=== PATIENT | female | born 1990 | race Caucasian/White ===

== ENCOUNTER 2023-04-06 14:48 | Outpatient (OUT) | payer OTHER, SELFPAY ==
--- NOTE | 2023-04-06 14:53 | US_ITS ---
[address] [address] Patient Name: ANIA NICHOLS MRN: [id number] date: 1990 Sex: F Assigned Patient Location: Current Patient Location: Accession/Order Number: [id number] Exam Date: 04/06/2023 15:00 Report Date: 04/06/2023 15:47 At the request of: RAJANI OSORIO Procedure: US OB growth EXAMINATION: US OB growth HISTORY: SIZE OF FETUS INCONSISTENT WITH DATES COMPARISON: No relevant comparison available. FINDINGS: Heart Rate: 141.0 bpm Number: 1.0 Position: CEPHALIC Amniotic Fluid Volume: 13.9 cm Maximum Vertical Pocket: 5.4 cm BIOMETRY: BPD: 7.9 cm cm; 31 weeks 4 days; 51% HC: 28.9 cmcm; 31 weeks 6 days; 31% AC: 27.5 cm cm; 31 weeks 4 days; 61% FL: 6.1 cm cm; 31 weeks 6 days; 55% EFW: 1816.2 grams; 56% FL/AC: 22.3 FL/BPD: 78.1 HC/AC: 1.1 GESTATIONAL AGE: Age by EDC: 31 weeks 1 days RHONA by EDC: 06/07/2023 Age by US: 31 weeks 5 days RHONA by US: 06/03/2023 IMPRESSION: 1. Single live intrauterine with growth detailed above. Electronically authenticated by: NATHAN FRANKEL Date: 04/06/2023 15:47
== END 2023-04-06 14:49 ==
PROVIDERS: PCP Family Medicine; Visit Provider Obstetrics & Gynecology
DX: O26.849 Uterine size-date discrepancy, unspecified trimester (principal)
CPT/HCPCS: 76816

== ENCOUNTER 2023-05-04 14:05 | Outpatient (OUT) | payer OTHER, SELFPAY ==
--- NOTE | 2023-05-04 14:13 | US_ITS ---
[address] [address] Patient Name: ANIA INCHOLS MRN: [id number] date: 1990 Sex: F Assigned Patient Location: US Current Patient Location: US Accession/Order Number: [id number] Exam Date: 05/04/2023 14:08 Report Date: 05/04/2023 16:08 At the request of: RAJANI OSORIO Procedure: US OB growth EXAMINATION: US OB incomplete anatomy, US OB growth HISTORY: INCOMPLETE ANATOMY ; gestational diabetes COMPARISON: Ultrasound anatomy 01/25/2023, ultrasound OB growth 04/06/2023 FINDINGS: Heart Rate: 165.0 bpm Number: 1.0 Position: CEPHALIC Amniotic Fluid Volume: 13.3 cm Maximum Vertical Pocket: 3.9 cm ANATOMY: Evaluation of the cardiac outflow tracts and three-vessel cord; no appreciable abnormality. BIOMETRY: BPD: 8.5 cm cm; 34 weeks 1 days; 26% HC: 31.7 cmcm; 35 weeks 5 days; 29% AC: 31.6 cm cm; 35 weeks 4 days; 68% FL: 6.8 cm cm; 34 weeks 6 days; 36% EFW: 2622.4 grams FL/AC: 21.5 FL/BPD: 80.0 HC/AC: 1.0 GESTATIONAL AGE: Age by EDC: 35 weeks 1 days RHONA by EDC: 06/07/2023 Age by US: 35 weeks 1 day RHONA by US: 06/07/2023 US/US OB growth IMPRESSION: 1. Single live intrauterine with growth detailed above. 2. No appreciable abnormality of the left and right cardiac outflow tracts and three-vessel cord. Electronically authenticated by: NATHAN FRANKEL Date: 05/04/2023 16:08
--- NOTE | 2023-05-04 14:13 | US_ITS ---
[address] [address] Patient Name: ANIA NICHOLS MRN: [id number] date: 1990 Sex: F Assigned Patient Location: US Current Patient Location: US Accession/Order Number: [id number] Exam Date: 05/04/2023 14:13 Report Date: 05/04/2023 16:08 At the request of: RAJANI OSORIO Procedure: US OB incomplete anatomy EXAMINATION: US OB incomplete anatomy, US OB growth HISTORY: INCOMPLETE ANATOMY ; gestational diabetes COMPARISON: Ultrasound anatomy 01/25/2023, ultrasound OB growth 04/06/2023 FINDINGS: Heart Rate: 165.0 bpm Number: 1.0 Position: CEPHALIC Amniotic Fluid Volume: 13.3 cm Maximum Vertical Pocket: 3.9 cm ANATOMY: Evaluation of the cardiac outflow tracts and three-vessel cord; no appreciable abnormality. BIOMETRY: BPD: 8.5 cm cm; 34 weeks 1 days; 26% HC: 31.7 cmcm; 35 weeks 5 days; 29% AC: 31.6 cm cm; 35 weeks 4 days; 68% FL: 6.8 cm cm; 34 weeks 6 days; 36% EFW: 2622.4 grams FL/AC: 21.5 FL/BPD: 80.0 HC/AC: 1.0 GESTATIONAL AGE: Age by EDC: 35 weeks 1 days RHONA by EDC: 06/07/2023 Age by US: 35 weeks 1 day RHONA by US: 06/07/2023 US/US OB incomplete anatomy IMPRESSION: 1. Single live intrauterine with growth detailed above. 2. No appreciable abnormality of the left and right cardiac outflow tracts and three-vessel cord. Electronically authenticated by: NATHAN FRANKEL Date: 05/04/2023 16:08
== END 2023-05-04 14:06 | disposition home or self-care (01) ==
LOC: US 14:05
PROVIDERS: PCP Family Medicine; Visit Provider Obstetrics & Gynecology
DX: Z36.2 Encounter for other antenatal screening follow-up (principal); Z86.32 Personal history of gestational diabetes
CPT/HCPCS: 76815; 76816

== ENCOUNTER 2023-05-10 16:16 | Outpatient (OUT) | payer OTHER, SELFPAY ==
--- NOTE | 2023-05-10 16:17 | US_ITS ---
[address] [address] Patient Name: ANIA NICHOLS MRN: [id number] date: 1990 Sex: F Assigned Patient Location: US Current Patient Location: Accession/Order Number: [id number] Exam Date: 05/10/2023 16:25 Report Date: 05/10/2023 18:27 At the request of: RAJANI OSORIO Procedure: US OB BPP w non-stress EXAMINATION: US OB BPP w non-stress HISTORY: THIRD TRIMESTER Z34.93 COMPARISON: No relevant comparison available. TECHNIQUE: Ultrasound biophysical profile was performed in the radiology department. FINDINGS: BREATHING MOVEMENTS: 2.0 GROSS BODY MOVEMENTS: 2.0 TONE: 2.0 QUALITATIVE AMNIOTIC FLUID VOLUME: 2.0 PRESENTATION: CEPHALIC HEART RATE: 141.4 bpm H.B./min AMNIOTIC FLUID VOLUME: 10.8 cm cm GESTATIONAL AGE: 36 weeks 0 days CONCLUSION: Total biophysical profile score: 8.0 Electronically authenticated by: SAUL HOBBS Date: 05/10/2023 18:27
== END 2023-05-10 17:23 | disposition home or self-care (01) ==
LOC: US 16:16 → FBC 16:55
PROVIDERS: PCP Family Medicine; Visit Provider Obstetrics & Gynecology
DX: Z34.93 Encounter for supervision of normal pregnancy, unspecified, third trimester (principal)
CPT/HCPCS: 76818; 87081; 87150; 87186

== ENCOUNTER 2023-05-10 20:37 | Outpatient (REF) | payer OTHER, SELFPAY | END 2023-05-10 20:38 | disposition home or self-care (01) | LOC: LAB 20:37 | PROVIDERS: PCP Family Medicine; Visit Provider Obstetrics & Gynecology | DX: Z34.93 Encounter for supervision of normal pregnancy, unspecified, third trimester (principal) | CPT/HCPCS: 87081; 87150; 87186 ==

== ENCOUNTER 2023-05-13 16:14 | Outpatient (OUT) | payer OTHER, SELFPAY ==
[2023-05-13 16:21] VITALS: BP 158/88; PULSE 86
[2023-05-13 16:30] VITALS: BP 140/84; PULSE 81
== END 2023-05-13 16:59 | disposition home or self-care (01) ==
LOC: FBCO 16:14 → FBC 16:15
PROVIDERS: PCP Family Medicine; Visit Provider Obstetrics & Gynecology
DX: Z36.2 Encounter for other antenatal screening follow-up (principal); Z86.32 Personal history of gestational diabetes
CPT/HCPCS: 59025

== ENCOUNTER 2023-05-17 16:06 | Outpatient (OUT) | payer OTHER, SELFPAY ==
--- NOTE | 2023-05-17 16:13 | US_ITS ---
[address] [address] Patient Name: ANIA NICHOLS MRN: [id number] date: 1990 Sex: F Assigned Patient Location: [facility] Current Patient Location: Accession/Order Number: [id number] Exam Date: 05/17/2023 16:20 Report Date: 05/18/2023 04:09 At the request of: RAJANI OSORIO Procedure: US OB BPP w non-stress EXAMINATION: US OB BPP w non-stress HISTORY: THIRD TRIMESTER Z34.93 COMPARISON: Ultrasound biophysical 05/10/2023 TECHNIQUE: Ultrasound biophysical profile was performed in the radiology department. BREATHING MOVEMENTS: 2.0 GROSS BODY MOVEMENTS: 2.0 TONE: 2.0 QUALITATIVE AMNIOTIC FLUID VOLUME: 2.0 PRESENTATION: CEPHALIC HEART RATE: 133.0 bpm bpm. AMNIOTIC FLUID VOLUME: 12.6 cm GESTATIONAL AGE: 37 weeks 0 days CONCLUSION: Total biophysical profile score 8.0. Electronically authenticated by: NATHAN FRANKEL Date: 05/18/2023 04:09
[2023-05-17 16:57] VITALS: BP 143/84; PULSE 75
== END 2023-05-17 17:50 | disposition home or self-care (01) ==
LOC: US 16:07 → FBC 16:14
PROVIDERS: PCP Family Medicine; Visit Provider Midwife
DX: Z36.2 Encounter for other antenatal screening follow-up (principal); Z86.32 Personal history of gestational diabetes
CPT/HCPCS: 76818

== ENCOUNTER 2023-05-20 16:50 | Observation (INO) | payer OTHER, SELFPAY ==
[2023-05-20 16:31] VITALS: BP 162/98; PULSE 86
--- NOTE | 2023-05-20 17:02 | US_ITS ---
[address] [address] Patient Name: ANIA NICHOLS MRN: [id number] date: 1990 Sex: F Assigned Patient Location: [facility] Current Patient Location: [facility] Accession/Order Number: [id number] Exam Date: 05/20/2023 17:03 Report Date: 05/20/2023 18:13 At the request of: ADITI SANDERS Procedure: US OB BPP w non-stress EXAM: US OB BPP w non-stress HISTORY: increased BP COMPARISON: 05/17/2023 TECHNIQUE: Transabdominal pelvic ultrasound was performed. FINDINGS: There is a single live intrauterine gestation. MARIAN is 11.5 cm and is within normal limits. breathing movements: 2 / 2 Gross body movements: 2 / 2 tone: 2 / 2 Qualitative amniotic fluid volume: 2 / 2 Total biophysical profile score: 8 / 8 US/US OB BPP w non-stress IMPRESSION: 1. Unremarkable biophysical profile. The biophysical profile score is 8/8. 2. There is a single live intrauterine gestation. Electronically authenticated by: PRICE VIDALES Date: 05/20/2023 18:13
[2023-05-20 17:28] LABS: Basophils Percent Auto 0.2 % (0.2-2.0); Eosinophils Absolute Auto 0.1 10^3/uL (0.0-0.7); Eosinophils Percent Auto 1.3 % (0.9-7.0); Hematocrit 33.5 % (36.0-48.0); Hemoglobin 11.4 g/dL (12.0-16.0); Immature Granulocytes Abs Auto 0.06 10^3/uL (0.00-0.03); Immature Granulocytes Pct Auto 0.6 % (0.0-0.5); Lymphocytes Absolute Auto 1.7 10^3/uL (1.2-3.8); Lymphocytes Percent Auto 17.7 % (20.5-60.0); Mean Corpuscular Hemoglobin 29.3 pg (26.7-34.0); Mean Corpuscular Volume 86.1 fL (81.0-99.0); Mean Platelet Volume 10.2 fL (9.5-13.5); Monocytes Absolute Auto 0.5 10^3/uL (0.3-0.8); Monocytes Percent Auto 5.3 % (1.7-12.0); Neutrophils Percent Auto 74.9 % (43.0-75.0); Platelet Count 283 10^3/uL (150-450); Red Blood Count 3.89 10^6/uL (4.20-5.40); Red Cell Distribution Width 14.3 % (11.0-15.0); White Blood Count 9.3 10^3/uL (4.0-11.0)
--- NOTE | 2023-05-20 17:34 | PM.OBHP ---
OB - H&P: HPI History of Present Illness Chief complaint: FBC NST ROOM : 2 Para: 1 Gestational age based on last menstrual period: 37 PLUS WEEKS History of Present Dating criteria: LMP confirmed by 2nd trimester US care: good care Ultrasounds: normal mid trimester US complications: other (ELEVATED BLOOD PRESSURE IN THIRD TRIMESTER, HISTORY OF TOXEMIA TEN YEARS AGO, ELEVATED ONE HOUR GTT THIS ) complications comment: ADMIT OBSERVATION TO EVALUATE FOR TOXEMIA VS PIH VS CHRONIC HYPERTENSION Medical complications OB: none Labs Blood type: other (DO NOT HAVE ACCESS TO EHR FROM OFFICE) Review of Systems ROS Status of ROS 10 or more systems reviewed and unremarkable except as noted in history and below Meds Home Medications and Allergies Home Medications Medication Instructions Recorded Confirmed Type sertraline 50 mg tablet mg 05/20/23 History Allergies Allergy/AdvReac Type Severity Reaction Status Date / Time Penicillins Allergy Intermediate Hives Verified 05/13/23 16:23 Exam Constitutional Vital Signs, click to edit/add: Last Vital Signs Pulse 86 05/20/23 16:31 BP 162/98 H 05/20/23 16:31 Documenting provider has reviewed patient's vital signs: yes Common normals: no apparent distress, oriented x3, healthy appearing, alert and well nourished General appearance: cooperative, comfortable and well kempt Orientation/consciousness: Yes oriented to person, Yes oriented to place and Yes oriented to time HENMT Common normals: normocephalic and head/scalp atraumatic Eye Common normals: PERRL Neck & C-Spine Common normals: full ROM Respiratory Common normals: normal respiratory effort Auscultation: clear to auscultation bilaterally Cardio Common normals: regular rate and regular rhythm GI Common normals: Normal to inspection, nondistended, normoactive bowel sounds present (GRAVID UTERUS) Back & Pelvis Common normals: no CVA tenderness Extremity Common normals: normal to inspection and full ROM Neuro Common normals: oriented x3 and CN's II-XII intact bilaterally Motor exam: strength 5/5 throughout Psych Common normals: mental status grossly normal and thought process normal Mood and affect: euthymic mood Thought process: normal thought process Results Labs Labs: Short CBC 05/20/23 Range/Units 17:20 WBC 9.3 (4.0-11.0) 10^3/uL Hgb 11.4 L (12.0-16.0) g/dL Hct 33.5 L (36.0-48.0) % Plt Count 283 (150-450) 10^3/uL OB - A/P Assessment and Plan (1) Hypertension affecting : Plan 32 YEAR OLD, ESSENTIAL PRIMIP LAST 10 YEARS AGO. PRESENTED FOR NST AND BLOOD PRESSURE ELEVATED. HAD HISTORY OF TOXEMIA WITH FIRST . NO HEADACHE, NO EPIGASTRIC PAIN, NO BLURRING, NO HYPERREFLEXIA. OUTPATIENT ADMISSION FOR EVALUATION AND MANAGEMENT OF ELEVATED BLOOD PRESSURE. SUSPECT THIS MAY BE CHRONIC HYPERTENSION RATHER THAN ECLAMPSIA. CMP AND CBC NORMAL. BPP 10/. AWAITING P:C RATION ON URINE SAMPLE. IF THAT IS NORMAL, WILL SEND HOME ON LABETALOL 100 MG PO BID WITH FOLLOW UP TUESDAY FOR BLOOD PRESSURE CHECK. WILL BE INSTRUCTED ON SIGNS AND SYMPTOMS OF TOXEMIA AND INDICATIONS TO CALL PHYSICIAN.
[2023-05-20 17:36] VITALS: BP 163/89; PULSE 84
[2023-05-20] MEDS: LABETALOL HCL 20 MG/4 ML SYRINGE 5 MG IVP (17:40)
[2023-05-20 17:41] LABS: Alanine Aminotransferase 16 U/L (14-59); Albumin Globulin Ratio 0.8; Albumin Level 2.8 g/dL (3.4-5.0); Alkaline Phosphatase 71 U/L (46-116); Anion Gap 17.1; Aspartate Amino Transferase 9 U/L (15-37); BUN Creatinine Ratio 8.2; Bilirubin Total 0.2 mg/dL (0.2-1.0); Calcium 8.3 mg/dL (8.5-10.1); Carbon Dioxide 19.4 mmol/L (21.0-32.0); Chloride 104 mmol/L (98-107); Estimated GFR (African America >60 (>=60); Estimated GFR (Non-African Ame >60 (>=60); Globulin 3.7 g/dL; Glucose 123 mg/dL (74-106); Lactate Dehydrogenase 121 U/L (81-234); Potassium 3.5 mmol/L (3.5-5.1); Sodium 137 mmol/L (136-145); Total Protein 6.5 g/dL (6.4-8.2); Uric Acid 4.7 mg/dL (2.6-6.0)
[2023-05-20 17:53] VITALS: BP 134/76; PULSE 80
[2023-05-20 18:13] LABS: Bilirubin Urine NEGATIVE (NEGATIVE); Blood Urine NEGATIVE (NEGATIVE); Clarity Urine CLEAR (CLEAR); Color Urine LT. YELLOW (YELLOW); Glucose Urine UA NEGATIVE (NEGATIVE); Ketones Urine NEGATIVE (NEGATIVE); Leukocyte Esterase Urine NEGATIVE (NEGATIVE); Nitrite Urine NEGATIVE (NEGATIVE); Protein Urine NEGATIVE (NEG/TRACE); Urobilinogen Urine 0.2 EU/dL (0.2-1.0)
[2023-05-20 18:14] LABS: Urine Microscopic Indicated NO
[2023-05-20 18:18] LABS: Creatinine Urine Random 28.84 mg/dL (20.00-300.00)
[2023-05-20 18:21] LABS: Protein Creatinine Ratio Urine 0.21; Total Protein Urine Random <6.0 mg/dL (<=11.9)
== END 2023-05-20 18:45 | disposition home or self-care (01) ==
LOC: FBCO 16:54 → FBC 16:54
PROVIDERS: Admitting Provider Obstetrics & Gynecology; PCP Family Medicine; Visit Provider Obstetrics & Gynecology
DX: O16.3 Unspecified maternal hypertension, third trimester (principal); Z3A.37 37 weeks gestation of pregnancy
CPT/HCPCS: 36415; 59025; 76818; 80053; 81003; 82570; 83615; 84156; 84550; 85025; 96374; G0378; G0379

== ENCOUNTER 2023-05-24 11:07 | Outpatient (OUT) | payer OTHER, SELFPAY ==
--- NOTE | 2023-05-24 11:09 | US_ITS ---
[address] [address] Patient Name: ANIA NICHOLS MRN: [id number] date: 1990 Sex: F Assigned Patient Location: US Current Patient Location: Accession/Order Number: [id number] Exam Date: 05/24/2023 11:10 Report Date: 05/24/2023 18:02 At the request of: RAJANI OSORIO Procedure: US OB growth EXAMINATION: US OB growth HISTORY: GDM COMPARISON: No relevant comparison available. FINDINGS: #: 1.0 Presentation: Cephalic presentation, longitudinal lie Heart Rate: 142.0 bpm Amniotic Fluid Volume: 18.2 cm cm Maximum Vertical Pocket: 6.0 cm cm 4.1 cm cm 3.9 cm cm 4.2 cm cm BIOMETRY: BPD: 9.0 cm cm; 36 weeks 3 days, 31% HC: 33.4 cm cm; 38 weeks 2 days, 35% AC: 34.5 cm cm; 38 weeks 3 days, 78% FL: 7.7 cm cm; 39 weeks 2 days, 81% EFW: 3459 g, 7 lbs. 10 oz., 71% FL/AC: 22.2 FL/BPD: 85.2 HC/AC: 1.0 GESTATIONAL AGE: RHONA by EDC: 38 weeks 0 days Age by EDC: 06/07/2023 Ultrasound Age: 38 weeks 1 day RHONA by US: 06/06/2023 US/US OB growth IMPRESSION: Normal interval growth Electronically authenticated by: SAUL HOBBS Date: 05/24/2023 18:02
--- NOTE | 2023-05-24 15:48 | US_ITS ---
[address] [address] Patient Name: ANIA NICHOLS MRN: [id number] date: 1990 Sex: F Assigned Patient Location: [facility] Current Patient Location: Accession/Order Number: [id number] Exam Date: 05/24/2023 16:15 Report Date: 05/25/2023 14:33 At the request of: RAJANI OSORIO Procedure: US OB BPP w non-stress EXAMINATION: US OB BPP w non-stress HISTORY: Third trimester Z34.93 COMPARISON: Ultrasound biophysical 05/12/2023 TECHNIQUE: Ultrasound biophysical profile was performed in the radiology department. BREATHING MOVEMENTS: 2.0 GROSS BODY MOVEMENTS: 2.0 TONE: 2.0 QUALITATIVE AMNIOTIC FLUID VOLUME: 2.0 PRESENTATION: CEPHALIC HEART RATE: 139.9 bpm bpm. AMNIOTIC FLUID VOLUME: 8.7 cm GESTATIONAL AGE: 38 weeks 0 days CONCLUSION: Total biophysical profile score 8.0. Electronically authenticated by: NATHAN FRANKEL Date: 05/25/2023 14:33
== END 2023-05-24 11:08 | disposition home or self-care (01) ==
LOC: US 11:07
PROVIDERS: PCP Family Medicine; Visit Provider Obstetrics & Gynecology
DX: Z36.2 Encounter for other antenatal screening follow-up (principal); Z86.32 Personal history of gestational diabetes; Z3A.38 38 weeks gestation of pregnancy
CPT/HCPCS: 76816; 76818

== ENCOUNTER 2023-05-24 15:41 | Observation (INO) | payer OTHER, SELFPAY ==
[2023-05-24 15:56] VITALS: BP 136/73; PULSE 80
== END 2023-05-24 16:45 | disposition home or self-care (01) ==
PROVIDERS: Admitting Provider Midwife; PCP Family Medicine; Visit Provider Midwife
DX: O24.419 Gestational diabetes mellitus in pregnancy, unspecified control (principal); Z36.2 Encounter for other antenatal screening follow-up; Z3A.38 38 weeks gestation of pregnancy
CPT/HCPCS: 59025; 76816; 76818; G0378; G0379

== ENCOUNTER 2023-05-27 16:00 | Outpatient (OUT) | payer OTHER, SELFPAY ==
[2023-05-27 16:08] VITALS: BP 143/87; PULSE 85
== END 2023-05-27 16:45 | disposition home or self-care (01) ==
LOC: FBCO 16:00 → FBC 16:01
PROVIDERS: PCP Family Medicine; Visit Provider Obstetrics & Gynecology
DX: Z34.93 Encounter for supervision of normal pregnancy, unspecified, third trimester (principal); Z36.2 Encounter for other antenatal screening follow-up; Z86.32 Personal history of gestational diabetes
CPT/HCPCS: 59025

== ENCOUNTER 2023-05-31 16:11 | Outpatient (OUT) | payer OTHER, SELFPAY ==
--- NOTE | 2023-05-31 16:12 | US_ITS ---
[address] [address] Patient Name: ANIA NICHOLS MRN: [facility]:[id number] date: 1990 Sex: F Assigned Patient Location: [facility] Current Patient Location: Accession/Order Number: [id number] Exam Date: 05/31/2023 16:20 Report Date: 05/31/2023 22:11 At the request of: RAJANI OSORIO Procedure: US OB BPP w non-stress EXAMINATION: US OB BPP w non-stress HISTORY: THIRD TRIMESTER Z34.93 COMPARISON: Ultrasound OB biophysical 05/24/2023 TECHNIQUE: Ultrasound biophysical profile was performed in the radiology department. BREATHING MOVEMENTS: 0.0 GROSS BODY MOVEMENTS: 2.0 TONE: 2.0 QUALITATIVE AMNIOTIC FLUID VOLUME: 2.0 PRESENTATION: CEPHALIC HEART RATE: 155.2 bpm bpm. AMNIOTIC FLUID VOLUME: 12.6 cm GESTATIONAL AGE: 39 weeks 0 days CONCLUSION: Total biophysical profile score 6.0. Electronically authenticated by: NATHAN FRANKEL Date: 05/31/2023 22:11
[2023-05-31 17:03] VITALS: BP 137/76; PULSE 78
== END 2023-05-31 17:25 | disposition home or self-care (01) ==
LOC: US 16:11 → FBC 16:50
PROVIDERS: PCP Family Medicine; Visit Provider Obstetrics & Gynecology
DX: Z34.93 Encounter for supervision of normal pregnancy, unspecified, third trimester (principal); Z36.2 Encounter for other antenatal screening follow-up; Z86.32 Personal history of gestational diabetes
CPT/HCPCS: 76818

== ENCOUNTER 2023-06-03 16:00 | Outpatient (OUT) | payer OTHER, SELFPAY ==
[2023-06-03 16:08] VITALS: BP 143/83; PULSE 93
== END 2023-06-03 16:30 | disposition home or self-care (01) ==
LOC: FBCO 16:01 → FBC 16:01
PROVIDERS: PCP Family Medicine; Visit Provider Obstetrics & Gynecology
DX: Z34.93 Encounter for supervision of normal pregnancy, unspecified, third trimester (principal)
CPT/HCPCS: 59025

== ENCOUNTER 2023-06-07 15:05 | Outpatient (OUT) | payer OTHER, SELFPAY ==
--- NOTE | 2023-06-07 15:08 | US_ITS ---
[address] [address] Patient Name: ANIA NICHOLS MRN: [facility]:[id number] date: 1990 Sex: F Assigned Patient Location: [facility] Current Patient Location: [facility] Accession/Order Number: [id number] Exam Date: 06/07/2023 15:09 Report Date: 06/07/2023 15:53 At the request of: ESTUARDO DACOSTA Procedure: US OB BPP w non-stress EXAMINATION: US OB BPP w non-stress HISTORY: Third trimester Z34.93 COMPARISON: Ultrasound biophysical 05/31/2023 TECHNIQUE: Ultrasound biophysical profile was performed in the radiology department. BREATHING MOVEMENTS: 2.0 GROSS BODY MOVEMENTS: 2.0 TONE: 2.0 QUALITATIVE AMNIOTIC FLUID VOLUME: 2.0 PRESENTATION: Cephalic HEART RATE: 139.9 bpm bpm. AMNIOTIC FLUID VOLUME: 18.9 cm GESTATIONAL AGE: 40 weeks 0 days CONCLUSION: Total biophysical profile score 8.0. Electronically authenticated by: NATHAN FRANKEL Date: 06/07/2023 15:53
[2023-06-07 15:32] VITALS: BP 146/75; PULSE 83
== END 2023-06-07 16:01 | disposition home or self-care (01) ==
LOC: US 15:07 → FBC 15:07
PROVIDERS: PCP Family Medicine; Visit Provider Midwife
DX: Z34.93 Encounter for supervision of normal pregnancy, unspecified, third trimester (principal); Z86.32 Personal history of gestational diabetes
CPT/HCPCS: 76818

== ENCOUNTER 2023-06-10 05:05 | Inpatient (IN) | payer OTHER, SELFPAY ==
[2023-06-10] VITALS (59 sets, daily range): BP systolic 63–166; BP diastolic 29–103; PULSE 54–120; RESP 16–18; TEMP 35.9–37
[2023-06-10 05:53] LABS: Hematocrit 33.3 % (36.0-48.0); Hemoglobin 11.1 g/dL (12.0-16.0); Mean Corpuscular HGB Conc 33.3 g/dL (29.9-35.2); Mean Corpuscular Hemoglobin 28.8 pg (26.7-34.0); Mean Corpuscular Volume 86.3 fL (81.0-99.0); Mean Platelet Volume 10.4 fL (9.5-13.5); Platelet Count 286 10^3/uL (150-450); Red Blood Count 3.86 10^6/uL (4.20-5.40); Red Cell Distribution Width 14.6 % (11.0-15.0); White Blood Count 10.6 10^3/uL (4.0-11.0)
[2023-06-10 06:01] LABS: Amphetamine Screen Urine NEGATIVE (NEGATIVE); Barbiturates Screen Urine NEGATIVE (NEGATIVE); Benzodiazepines Screen Urine NEGATIVE (NEGATIVE); Buprenorphine Screen Urine NEGATIVE (NEGATIVE); Cannabinoid Screen Urine NEGATIVE (NEGATIVE); Cocaine Screen Urine NEGATIVE (NEGATIVE); Methadone Screen Urine NEGATIVE (NEGATIVE); Methamphetamines Screen Urine NEGATIVE (NEGATIVE); Opiate Screen Urine NEGATIVE (NEGATIVE); Oxycodone Screen Urine NEGATIVE (NEGATIVE); Phencyclidine Screen Urine NEGATIVE (NEGATIVE); Tricyclic Antidepressant Urine NEGATIVE (NEGATIVE)
[2023-06-10] MEDS: VANCOMYCIN HCL 1,000 MG in 0.9 % SODIUM CHLORIDE 250 ML 250 MG IV (06:14)
[2023-06-10] MEDS: 0.9 % SODIUM CHLORIDE 1,000 ML 125 ML IV ×2 (06:14→21:13)
[2023-06-10] MEDS: OXYTOCIN/0.9 % SODIUM CHLORIDE 10 UNITS/500 ML PLAST..BAG 6 UNIT IV (06:25)
[2023-06-10] MEDS: FENTANYL CITRATE/PF 100 MCG/2 ML VIAL EPIDURAL (11:45)
[2023-06-10] MEDS: ROPIVACAINE HCL/PF 400 MG/200 ML PREMIX 10 MG EPIDURAL (11:46)
--- NOTE | 2023-06-10 18:29 | PM.OBPRCVD ---
Procedure Intrapartal events: None Induction method: per pitocin protocol Delivery augmentation: rupture of membranes and pitocin Delivery monitor: external FHT, external uterine and internal FHT Route of delivery: Episiotomy Description: midline Laceration description: perineal - 2nd degree Delivery repair: Vicryl Estimated blood loss (mL): 400 Anesthesia type: Epidural Disposition: PACU Delivery date: 06/10/23 Gender: female presentation: vertex Placental delivery description: Spontaneous cord description: 3 Vessels and Nuchal Cord
[2023-06-10] MEDS: ONDANSETRON PF 4 MG/2 ML VIAL IV (18:41)
[2023-06-10] MEDS: OXYTOCIN/0.9 % SODIUM CHLORIDE 20 UNITS/1,000 ML PLAST..BAG 125 UNIT IV (18:41)
[2023-06-10] MEDS: CARBOPROST TROMETHAMINE 250 MCG/ML 1 ML VIAL IM (20:38)
[2023-06-10] MEDS: IBUPROFEN 600 MG TABLET PO (22:27)
--- NOTE | 2023-06-10 23:29 | PC.NURSE ---
PPH summary: 1942- RN performs assessment, changes dalton pad. Pt fundus 2/U and deviated to the right, but firm. Pad weighed and EBL calculated at 330ml. RN continues to monitor pt closely. 2024- RN at bedside, pt states I don't feel well, I just got very light headed . Pt's face & lips turn pale/franklin. Pt's BP 60s/30s. This RN lays pt flat, begins NS .9% IV bolus at 999ml/hr, and massages fundus which is boggy. Pt presses call light for other RN assistance. Pt is placed in trendelenburg position while fundal massage continues; fundus firms back up at 1/U. Dalton pad changed and weighed for another 300ml EBL. 2029- Pt begins trickling blood once more; Melba Roque stays at bedside while this RN calls Dr. Sanders. 2030- Dr. Sanders notified of pt's EBL & status and vitals; given order for Hemabate 250mcg IM. 2037- Hemabate 250mcg IM administered in left gluteus medius. Pt's color begins to return to face/lips and blood pressure stabilizes. 2039- Fundal check performed; fundus is boggy at UE, softball-sized clot expelled, dalton pad changed, and another 300 EBL noted. Uterus firms back up after massage. 2045- Dr. Sanders arrives at bedside, performs fundal check which is firm at UE, then performs sterile vaginal exam and manually removes multiple ping pong ball sized clots. 2049- Pt straight cathed for 200ml of straw colored urine. 2057- Pt positioned in stirrups at this time. Dr. Sanders uses speculum, ring forceps, and sterile gauze to evacuate more clots at this time. Multiple ping pong ball sized clots removed once again. Pt's dalton pad changed and weighed for another 250ml EBL. 2129- Pt rests in bed at this time. Fundus UE with small rubra lochia noted on pad. 2199- Pt states she felt a gush of bleeding; RN performs fundal check and it is UE & firm. Golf ball sized clot is expelled, dalton pad changed and weighed for another 240ml EBL. 2234- RN assess pt once more. Fundus is UE and firm, but a baseball sized clot is expelled upon fundal check. Dalton pad weighed and changed for another 305ml EBL. Pt's BP is WNL, pt only feels light headed when moving too fast and is more pale than previously, but still has pink tones. Total EBL at this time is 2,125ml. 2250- Epidural catheter removed intact per pt request 2320- Pt rests in bed on right side. Fundus is UE and firm, small rubra lochia noted on dalton pad. Pt is stable and will attempt to sleep at this time. Denys Flores RN
[2023-06-11] VITALS (8 sets, daily range): BP systolic 111–135; BP diastolic 53–78; PULSE 78–104; RESP 16; TEMP 37
[2023-06-11 05:58] LABS: Basophils Percent Auto 0.2 % (0.2-2.0); Eosinophils Percent Auto 0.2 % (0.9-7.0); Hemoglobin 7.1 g/dL (12.0-16.0); Immature Granulocytes Abs Auto 0.14 10^3/uL (0.00-0.03); Immature Granulocytes Pct Auto 0.8 % (0.0-0.5); Lymphocytes Absolute Auto 1.8 10^3/uL (1.2-3.8); Lymphocytes Percent Auto 9.8 % (20.5-60.0); Mean Corpuscular HGB Conc 32.7 g/dL (29.9-35.2); Mean Corpuscular Volume 88.6 fL (81.0-99.0); Mean Platelet Volume 10.5 fL (9.5-13.5); Monocytes Percent Auto 5.6 % (1.7-12.0); Neutrophils Percent Auto 83.4 % (43.0-75.0); Platelet Count 241 10^3/uL (150-450); Red Blood Count 2.45 10^6/uL (4.20-5.40); Red Cell Distribution Width 14.6 % (11.0-15.0)
[2023-06-11 06:02] LABS: Hematocrit 21.7 % (36.0-48.0)
--- NOTE | 2023-06-11 07:23 | W.PC.ACHO ---
Registration Status: ADM IN Primary Language: Montserratian Preferred Language: Montserratian Active Medications Generic Name Dose Route Start Last Admin Trade Name Freq PRN Reason Stop Dose Admin Acetaminophen 650 mg 06/10/23 18:27 Acetaminophen 325 Mg Tablet PO Q6H PRN Mild Pain Al Hydroxide/Mg Hydroxide 2,400 mg 06/10/23 18:27 Magnesium Hydroxide 2,400 Mg/10 Ml Oral.Susp PO Q6H PRN Dyspepsia Benzocaine/Menthol 1 applic 06/10/23 18:27 Benzocaine/Menthol 85 Gram Bottle TOPICAL Q1H PRN Pain Carboprost Tromethamine 250 mcg 06/10/23 05:07 06/10/23 20:38 Carboprost Tromethamine 250 Mcg/Ml 1 Ml Vial IM 06/11/23 19:00 250 mcg Q15M PRN Administration Bleeding Diphtheria/Pertussis/Tetanus Vacc 0.5 ml 06/12/23 09:00 Adacel Diph,Pertuss(Acell),Tet Vac/Pf 0.5 Ml Adult Syringe IM 06/12/23 09:01 .ONCE ONE Docusate Sodium 100 mg 06/11/23 09:00 Docusate Sodium 100 Mg Capsule PO BID OMAR Sodium Chloride 1,000 mls @ 125 mls/hr 06/10/23 05:15 06/10/23 21:13 Sodium Chloride 0.9% 1,000 Ml IV 125 mls/hr .Q8H OMAR Administration Ibuprofen 600 mg 06/10/23 18:27 06/10/23 22:27 Ibuprofen 600 Mg Tablet PO 600 mg Q6H PRN Administration Moderate Pain Labetalol HCl 100 mg 06/10/23 21:00 Labetalol Hcl 100 Mg Tablet PO BID OMAR Measles/Mumps/Rubella Vaccine Live 0.5 ml 06/12/23 09:00 Measles,Mumps,Rubella Vacc/Pf 0.5 Ml Vial SQ 06/12/23 09:01 .ONCE ONE Methylergonovine Maleate 0.2 mg 06/10/23 05:07 Methylergonovine Maleate 0.2 Mg Tablet PO 06/11/23 19:00 Q4H PRN Uterine Contractility/Contract Methylergonovine Maleate 0.2 mg 06/10/23 05:07 Methylergonovine Maleate 0.2 Mg/Ml Ampule IM 06/11/23 19:00 ONCE PRN Uterine Contractility/Contract Misoprostol 600 mcg 06/10/23 05:07 Misoprostol 100 Mcg Tablet PO 06/11/23 19:00 ONCE PRN Uterine Bleeding Misoprostol 800 mcg 06/10/23 05:07 Misoprostol 100 Mcg Tablet SL 06/11/23 19:00 ONCE PRN Uterine Bleeding Misoprostol 1,000 mcg 06/10/23 05:07 Misoprostol 100 Mcg Tablet AR 06/11/23 19:00 ONCE PRN Uterine Bleeding Ondansetron HCl 4 mg 06/10/23 05:07 06/10/23 18:41 Ondansetron Pf 4 Mg/2 Ml Vial IV 4 mg Q6H PRN Administration Nausea And Vomiting Ondansetron HCl 4 mg 06/10/23 05:07 Ondansetron 4 Mg Rapdis Tablet SL Q6H PRN Nausea And Vomiting Senna 17.2 mg 06/10/23 20:00 Sennosides 8.6 Mg Tablet PO QHS PRN Constipation Simethicone 80 mg 06/10/23 18:27 Simethicone 80 Mg Tab.Chew PO QID PRN Abdominal Distention Temazepam 15 mg 06/10/23 20:00 Temazepam 15 Mg Capsule PO HS PRN Sleep Witch Meka/Glycerin 1 pad 06/10/23 18:27 Glycerin/Witch Meka 1 Each Jar TOPICAL Q1H PRN Pain Diet Category Date Time Status Regular Consistency Diet Diet 06/10/23 Dinner Active Respiratory Lung sounds [Throughout] clear Lung sounds [Throughout] clear Oxygen Delivery Method Room Air Oxygen Delivery Method Room Air Oxygen Delivery Method Room Air Renal Bladder Pattern Continent Bladder Pattern Continent
[2023-06-11] MEDS: IBUPROFEN 600 MG TABLET PO ×2 (08:26→17:11)
[2023-06-11] MEDS: DOCUSATE SODIUM 100 MG CAPSULE PO ×2 (08:27→21:43)
[2023-06-11] MEDS: LABETALOL HCL 100 MG TABLET PO (09:08)
--- NOTE | 2023-06-11 16:30 | PM.OBPN ---
OB - PN: Subj Subjective Patient comments: no complaints and tolerating diet [place] infant status: doing well feeding status: breast and bottle feeding Exam Constitutional Vital Signs, click to edit/add: Last Vital Signs Temp 98.6 F 06/11/23 08:20 Pulse 80 06/11/23 12:46 Resp 16 06/11/23 12:46 BP 111/53 06/11/23 12:46 O2 Del Method Room Air 06/11/23 12:46 Documenting provider has reviewed patient's vital signs: yes Common normals: no apparent distress, oriented x3, no limitations, healthy appearing, alert and well nourished General appearance: cooperative Nutritional appearance: overweight Orientation/consciousness: Yes awake, Yes oriented to person, Yes oriented to place and Yes oriented to time HENMT Common normals: normocephalic, head/scalp atraumatic and moist oral mucous membranes Eye Pupil: PERRL and accommodation reflex normal Neck & C-Spine Common normals: full ROM and supple Chest Common normals: inspection of chest normal Respiratory Common normals: normal respiratory effort and no retractions Cardio Common normals: regular rate and regular rhythm GI Common normals: Normal to inspection, nondistended, normoactive bowel sounds present Common normals: no CVA tenderness Extremity Common normals: normal to inspection, full ROM and no calf tenderness Neuro Common normals: CN's II-XII intact bilaterally, moves all extremities, no focal motor deficits and no sensory deficits noted Motor exam: strength 5/5 throughout Psych Common normals: mental status grossly normal, thought process normal, cooperative and affect normal Attitude: calm and engaged Results Labs Labs: Short CBC 06/11/23 Range/Units 05:50 WBC 18.0 H (4.0-11.0) 10^3/uL Hgb 7.1 L (12.0-16.0) g/dL Hct 21.7 L* (36.0-48.0) % Plt Count 241 (150-450) 10^3/uL OB - PN: A/P Assessment and Plan (1) hemorrhage: Assessment and Plan: UTERINE DELAY IN THAIS POST DELIVERY OF LARGE BABY. UTERUS MANUALLY EXPLORED AND NO POC. HOWEVER LARGE BLOOD CLOTS EVACUATED. RECEIVED ONE DOSE OF HEMABATE AND PITOCIN 20 MIU IN ONE LITER WHICH SUCCESSFULLY STOPPED BLEEDING (2) Anemia: Assessment and Plan: HEMOGLOBIN 7.1. NO BLURRING VISION, NO HEADACHE, NO DIZZINESS, BLOOD PRESSURE AND HEART RATE NORMAL. MAKING URINE. AT THIS TIME WILL NOT TRANSFUSE WITH BLOOD BUT WILL GIVE VENOFER 200 MG IN NORMAL SALINE DRIP OVER 15 MINUTES AND REASSESS TOMORROW Plan MONITOR URINE, ENCOURAGED TO DRINK WATER WHICH SHE IS DOING, VENOFER TIMES ONE DOSE TO AUGMENT RATE OF HEMOGLOBIN PRODUCTION, EXPLAINED MILK PRODUCTION MAY BE DELAYED BUT CONTINUE TO PUMP BREAST WHICH WILL ACT A STIMULUS. SHOULD URINE OUTPUT DECREASE, WILL RESTART IVF'S Plan - Vaginal Delivery day: 1 Plan: routine care Time Spent with Patient Time: Total time spent is greater than 50% in coordination of care (as documented) at patient's floor/unit and/or counseling patient: Total time spent with greater than 50% in coordination of care (as documented) at patient's floor/unit and/or counseling patient: less than 15 minutes
--- NOTE | 2023-06-11 16:43 | W.PM.PROCNOT ---
Date of procedure: 06/10/23 Pre-op diagnosis: HEMORRHAGE Post-op diagnosis: same as pre-op Procedure: PATIENT WAS IN ROOM 255 POST VAGINAL DELIVERY I WAS CALLED IN FOR DELAYED HEMORRHAGE HAD DELIVERED A BABY GIRL 8 POUNDS 6 OUNCES WITHOUT COMPLICATION PLACENTA HAD BEEN SPONTANEOUSLY DELIVERED INTACT RN REPORTING GUSHING OF BLOOD AFTER COMPLETION OF DELIVERY AND WERE INSTRUCTED TO GIVE HEMABATE 250 UG AND RUN PITOCIN 20 MIU IN ONE LITER WIDE OPEN APPLYING FUNDAL PRESSURE UPON MY ARRIVAL, BLEEDING HAD DISSIPATED PATIENT PLACED IN LITHOTOMY MANY LARGE CLOTS EVACUATED FROM VAGINA BLADDER STRAIGHT CATHED FOR 175 CC OF CLEAR URINE UTERINE CAVITY SWEPT WITH STERILE RING FORCEPS AND 4 X 4 SPONGE AFTER STERILE SPECULUM POSITIONED UTERINE CAVITY OBSERVED TO BE EMPTY PATIENT TOLERATED THE PROCEDURE WELL EVEN THOUGH MOST OF THE EPIDURAL ANESTHETIC HAD WORN OFF INSTRUMENT AND SPONGE COUNT CORRECT AT THE END OF THE PROCEDURE Anesthesia: Other (EPIDURAL FROM DELIVERY) Surgeon: Trisha Sanders Estimated blood loss (mL): 2,100 Pathology: none sent Condition: stable Disposition: other (MATERNITY)
[2023-06-11] MEDS: IRON SUCROSE COMPLEX 200 MG in 0.9 % SODIUM CHLORIDE 100 ML 220 MG IV (17:54)
[2023-06-11] MEDS: 0.9 % SODIUM CHLORIDE 1,000 ML 125 ML IV (17:54)
--- NOTE | 2023-06-11 19:44 | W.PC.ACHO ---
Registration Status: ADM IN Primary Language: Jordanian Preferred Language: Jordanian Report given to Denys Flores RN. Care relinquished. Active Medications Generic Name Dose Route Start Last Admin Trade Name Talita PRN Reason Stop Dose Admin Acetaminophen 650 mg 06/10/23 18:27 Acetaminophen 325 Mg Tablet PO Q6H PRN Mild Pain Al Hydroxide/Mg Hydroxide 2,400 mg 06/10/23 18:27 Magnesium Hydroxide 2,400 Mg/10 Ml Oral.Susp PO Q6H PRN Dyspepsia Benzocaine/Menthol 1 applic 06/10/23 18:27 Benzocaine/Menthol 85 Gram Bottle TOPICAL Q1H PRN Pain Diphtheria/Pertussis/Tetanus Vacc 0.5 ml 06/12/23 09:00 Adacel Diph,Pertuss(Acell),Tet Vac/Pf 0.5 Ml Adult Syringe IM 06/12/23 09:01 .ONCE ONE Docusate Sodium 100 mg 06/11/23 09:00 06/11/23 08:27 Docusate Sodium 100 Mg Capsule PO 100 mg BID OMAR Administration Sodium Chloride 1,000 mls @ 125 mls/hr 06/10/23 05:15 06/11/23 17:54 Sodium Chloride 0.9% 1,000 Ml IV 125 mls/hr .Q8H OMAR Administration Ibuprofen 600 mg 06/10/23 18:27 06/11/23 17:11 Ibuprofen 600 Mg Tablet PO 600 mg Q6H PRN Administration Moderate Pain Labetalol HCl 100 mg 06/10/23 21:00 06/11/23 09:08 Labetalol Hcl 100 Mg Tablet PO 100 mg BID OMAR Administration Measles/Mumps/Rubella Vaccine Live 0.5 ml 06/12/23 09:00 Measles,Mumps,Rubella Vacc/Pf 0.5 Ml Vial SQ 06/12/23 09:01 .ONCE ONE Ondansetron HCl 4 mg 06/10/23 05:07 06/10/23 18:41 Ondansetron Pf 4 Mg/2 Ml Vial IV 4 mg Q6H PRN Administration Nausea And Vomiting Ondansetron HCl 4 mg 06/10/23 05:07 Ondansetron 4 Mg Rapdis Tablet SL Q6H PRN Nausea And Vomiting Senna 17.2 mg 06/10/23 20:00 Sennosides 8.6 Mg Tablet PO QHS PRN Constipation Simethicone 80 mg 08/18/23 18:27 Simethicone 80 Mg Tab.Chew PO QID PRN Abdominal Distention Temazepam 15 mg 06/10/23 20:00 Temazepam 15 Mg Capsule PO HS PRN Sleep Witch Meka/Glycerin 1 pad 06/10/23 18:27 Glycerin/Witch Meka 1 Each Jar TOPICAL Q1H PRN Pain Respiratory Lung sounds [Throughout] clear Lung sounds [Throughout] clear Lung sounds [Throughout] clear Lung sounds [Throughout] clear Oxygen Delivery Method Room Air Oxygen Delivery Method Room Air Oxygen Delivery Method Room Air Oxygen Delivery Method Room Air Renal Bladder Pattern Continent Bladder Pattern Continent Bladder Pattern Continent
[2023-06-12] MEDS: IBUPROFEN 600 MG TABLET PO ×2 (00:03→08:56)
[2023-06-12 00:04] VITALS: BP 117/55; PULSE 101
[2023-06-12 00:05] VITALS: TEMP 36.7
[2023-06-12 00:32] VITALS: RESP 16
--- NOTE | 2023-06-12 07:06 | W.PC.ACHO ---
Registration Status: ADM IN Primary Language: [place] Verdean Preferred Language: [place] Active Medications Generic Name Dose Route Start Last Admin Trade Name Freq PRN Reason Stop Dose Admin Acetaminophen 650 mg 06/10/23 18:27 Acetaminophen 325 Mg Tablet PO Q6H PRN Mild Pain Al Hydroxide/Mg Hydroxide 2,400 mg 06/10/23 18:27 Magnesium Hydroxide 2,400 Mg/10 Ml Oral.Susp PO Q6H PRN Dyspepsia Benzocaine/Menthol 1 applic 06/10/23 18:27 Benzocaine/Menthol 85 Gram Bottle TOPICAL Q1H PRN Pain Diphtheria/Pertussis/Tetanus Vacc 0.5 ml 06/12/23 09:00 Adacel Diph,Pertuss(Acell),Tet Vac/Pf 0.5 Ml Adult Syringe IM 06/12/23 09:01 .ONCE ONE Docusate Sodium 100 mg 06/11/23 09:00 06/11/23 21:43 Docusate Sodium 100 Mg Capsule PO 100 mg BID OMAR Administration Sodium Chloride 1,000 mls @ 125 mls/hr 06/10/23 05:15 06/11/23 17:54 Sodium Chloride 0.9% 1,000 Ml IV 125 mls/hr .Q8H OMAR Administration Ibuprofen 600 mg 06/10/23 18:27 06/12/23 00:03 Ibuprofen 600 Mg Tablet PO 600 mg Q6H PRN Administration Moderate Pain Labetalol HCl 100 mg 06/10/23 21:00 06/11/23 21:45 Labetalol Hcl 100 Mg Tablet PO Not Given BID OMAR Measles/Mumps/Rubella Vaccine Live 0.5 ml 06/12/23 09:00 Measles,Mumps,Rubella Vacc/Pf 0.5 Ml Vial SQ 06/12/23 09:01 .ONCE ONE Ondansetron HCl 4 mg 06/10/23 05:07 06/10/23 18:41 Ondansetron Pf 4 Mg/2 Ml Vial IV 4 mg Q6H PRN Administration Nausea And Vomiting Ondansetron HCl 4 mg 06/10/23 05:07 Ondansetron 4 Mg Rapdis Tablet SL Q6H PRN Nausea And Vomiting Senna 17.2 mg 06/10/23 20:00 Sennosides 8.6 Mg Tablet PO QHS PRN Constipation Simethicone 80 mg 06/10/23 18:27 Simethicone 80 Mg Tab.Chew PO QID PRN Abdominal Distention Temazepam 15 mg 06/10/23 20:00 Temazepam 15 Mg Capsule PO HS PRN Sleep Witch Meka/Glycerin 1 pad 06/10/23 18:27 Glycerin/Witch Meka 1 Each Jar TOPICAL Q1H PRN Pain Respiratory Lung sounds [Throughout] clear Lung sounds [Throughout] clear Lung sounds [Throughout] clear Lung sounds [Throughout] clear Oxygen Delivery Method Room Air Oxygen Delivery Method Room Air Oxygen Delivery Method Room Air Renal Bladder Pattern Continent Bladder Pattern Continent Bladder Pattern Continent
[2023-06-12 08:53] VITALS: BP 134/63; PULSE 93
[2023-06-12] MEDS: DOCUSATE SODIUM 100 MG CAPSULE PO (08:56)
[2023-06-12 09:07] VITALS: BP 134/63; PULSE 93; RESP 16; TEMP 36.7
--- NOTE | 2023-06-12 12:42 | P.DS_ITS ---
DS: Providers Provider Date of admission: 06/10/23 05:05 Primary care physician: ROSIE OSORIO Admitting clinician: Kayden Amezquita Discharging clinician: Trisha Sanders Anticipated date of discharge: 06/12/23 DS: Diagnosis Discharge Diagnosis (1) hemorrhage: Assessment and plan: RESOLVED Qualifiers: hemorrhage type: delayed hemorrhage Qualified Code(s): O72.2 - Delayed and secondary hemorrhage (2) Anemia: Assessment and plan: S/P VENOFER. ON IRON, PNV AND IRON RICH DIET Plan ABOVE OB - DS: Summary Hospital Course Time spent discussing smoking cessation with patient: more than 10 minutes Peripartum Data - Vaginal Delivery Laceration description: periurethral - 2nd degree Complications complications: other (DELAYED HEMORRHAGE) Infant Delivery method: elective vaginal delivery Gender: female Discharge plan: home Status at Discharge Functional status at discharge: independent ambulation Time Spent with Patient Time attestation: Total time spent providing and/or coordinating discharge services: Time spent: less than 30 minutes Specific discharge activities: WALKING ONLY EXERCISE, ONLY LIFT BABY, NO SEX SIX WEEKS, IRON RICH DIET, CONTINUE PUMPING AND TAKING PNV, SPORTS BRA / IF DECIDES TO STOP BREAST FEEDING, BP CHECK IN ONE WEEK WITH DR. AMEZQUITA, TAKE BP DAILY AND HOLD LABETALOL IF BLOOD PRESSURE LESS THAN OR EQUAL TO 140/90. NO SWIMMING SIX WEEKS, NO BATHTUB SIX WEEKS, MAY SHOWER, MAY CLIMB STAIRS Exam Constitutional Vital Signs, click to edit/add: Last Vital Signs Temp 98.1 F 06/12/23 09:07 Pulse 93 H 06/12/23 09:07 Resp 16 06/12/23 09:07 BP 134/63 06/12/23 09:07 O2 Del Method Room Air 06/12/23 09:07 Documenting provider has reviewed patient's vital signs: yes Common normals: no apparent distress, oriented x3, no limitations, healthy appearing, alert and well nourished General appearance: cooperative, comfortable, well kempt and well developed Nutritional appearance: overweight Orientation/consciousness: Yes awake, Yes oriented to person, Yes oriented to place and Yes oriented to time HENMT Common normals: normocephalic and head/scalp atraumatic Eye Pupil: PERRL and accommodation reflex normal Neck & C-Spine Common normals: full ROM and supple Chest Common normals: inspection of chest normal Respiratory Common normals: normal respiratory effort Cardio Common normals: regular rate and regular rhythm GI Common normals: Normal to inspection, nondistended, normoactive bowel sounds present Common normals: no CVA tenderness Extremity Common normals: normal to inspection, full ROM and no calf tenderness Neuro Common normals: oriented x3, CN's II-XII intact bilaterally, moves all extremities, no focal motor deficits and no sensory deficits noted Motor exam: strength 5/5 throughout Psych Common normals: mental status grossly normal, thought process normal, cooperative and affect normal Appearance: well kempt Attitude: calm and engaged Discharge Plan Discharge Disposition: Home, Self-Care Condition: Good Assessment: FEELS WELL. NO COMPLAINTS. REQUESTING DISCHARGE BECAUSE BABY GIRL BEING TRANSFERRED TO [place]. DENIES ANY SOB OR BLURRING VISION OR DIZZINESS. NO BLEEDING. VSS NORMAL. AFEBRILE. Plan of Treatment: DISCHARGE. TAKE BLOOD PRESSURE DAILY, IF GREATER THAN 140/90 TAKE LABETALOL PRESCRIBED. IF NOT, DO NOT TAKE LABETALOL. CONTINUE PNV AND GIVING IRON SULFATE 325MG PO TWICE DAILY. WILL NEED BP CHECK WITH DR. AMEZQUITA IN ONE WEEK TO DECIDE ON THE NEED FOR CONTINUED ANTIHYPERTENSIVE MED. CONTINUE TO PUMP BREASTS. IF DECIDES TO STOP, THEN WEAR A SPORTS BRA 16/05 TO PREVENT MILK PRODUCTION. Discharge Medications: Continued sertraline 50 mg tablet PO Q24H labetalol 100 mg tablet Activity: resume usual activities as tolerated Activity Detail: NO SEX SIX WEEKS, WALKING ONLY EXERCISE SIX WEEKS, NO SWIMMING FOR 4 WEEKS, NO BATHTUB FOR 4 WEEKS, MAY CLIMB STAIRS, NO HEAVY LIFTING SIX WEEKS Diet: regular diet Diet Detail: EAT FOODS HIGH IN IRON DESCRIBED FOR PATIENT Patient Instructions: Anemia (DC) Activity Restrictions/Additional Instructions: ROUTINE INSTRUCTIONS S/P VAGINAL DELIVERY WITH SECOND DEGREE REPAIR GIVEN Forms: Portal Instructions Follow Up Appointments: WILL NEED TO SEE DR. AMEZQUITA IN ONE WEEK FOR BLOOD PRESSURE CHECK Discharge location: HOME.....HOWEVER WILL BE STAYING WITH DAUGHTER AT THE [facility]
== END 2023-06-12 14:10 | disposition home or self-care (01) | DRG 806 ==
PROVIDERS: Admitting Provider Obstetrics & Gynecology; PCP Family Medicine; Visit Provider Obstetrics & Gynecology
DX: O48.0 Post-term pregnancy (principal); D62 Acute posthemorrhagic anemia; Z37.0 Single live birth; O10.02 Pre-existing essential hypertension complicating childbirth; O72.2 Delayed and secondary postpartum hemorrhage; Z3A.40 40 weeks gestation of pregnancy; O70.1 Second degree perineal laceration during delivery; O69.81X0 Labor and delivery complicated by cord around neck, without compression, not applicable or unspecified; O99.824 Streptococcus B carrier state complicating childbirth; O90.81 Anemia of the puerperium; Z88.0 Allergy status to penicillin; Z79.899 Other long term (current) drug therapy
CPT/HCPCS: 36415; 80307; 85025; 85027; 86850; 86900; 86901; 96365; 96366; 96368; 96372; 96375; 96376; J1756; J3370